=== PATIENT | female | born 1965 | race Caucasian/White ===

== ENCOUNTER 2017-10-08 07:28 | Emergency (ER) | payer MEDICAID, OTHER ==
[~2017-10-08] VITALS: Ht 165.1 cm; Wt 63.0 kg
[~2017-10-08 07:28] MED LIST: IBUP-2321; TRAM50TA; VIC
[2017-10-08] MEDS ORDERED: CABE0.5T2 PO (07:35)
[2017-10-08] MEDS ORDERED: TRAMADOL 50MG TABLET PO ONE (08:45)
[2017-10-08 09:28] VITALS: BP 119/88
== END 2017-10-08 09:58 | disposition home or self-care (01) ==
LOC: ER 07:28
DX: G89.29 Other chronic pain (principal); M54.5 Low back pain; Z88.0 Allergy status to penicillin; Z90.5 Acquired absence of kidney; Z98.890 Other specified postprocedural states
CPT/HCPCS: 99282

== ENCOUNTER 2018-11-28 07:08 | Day surgery (SDC) | payer OTHER ==
[~2018-11-28] VITALS: Ht 162.6 cm; Wt 63.5 kg
[~2018-11-28 07:08] MED LIST changes: +CABE0.5T2 PO
[2018-11-28] MEDS ORDERED: METO-385 PO (08:20)
[2018-11-28] MEDS ORDERED: GABA-529 PO (08:20)
[2018-11-28] MEDS ORDERED: HYDR-4001 PO (08:20)
[2018-11-28] MEDS ORDERED: ESTR0.6264 PO (08:20)
[2018-11-28] MEDS ORDERED: ASPI-1159 PO (08:20)
[2018-11-28] MEDS ORDERED: RANO500T3 PO (08:20)
[2018-11-28] MEDS ORDERED: ESCI5TAB10 PO (08:20)
[2018-11-28] MEDS ORDERED: LIDOCAINE HCL 1% 20ML VIAL (Pyxis) INJ ONE (08:43)
[2018-11-28] MEDS ORDERED: IODIXANOL 320MG/ML 100 ML BOTTLE IV ONE (08:43)
[2018-11-28] MEDS ORDERED: FENTANYL CITRATE/PF 50MCG/ML 2ML VIAL ONE (08:51)
[2018-11-28] MEDS ORDERED: MIDAZOLAM HCL 2 MG/2 ML VIAL ONE (08:51)
[2018-11-28] MEDS ORDERED: ACETAMINOPHEN 325MG TABLET PO PRN (10:00)
[2018-11-28] MEDS ORDERED: ONDANSETRON HCL 4MG/2ML INJ IV PRN (10:00)
[2018-11-28] MEDS ORDERED: ATROPINE SULFATE 1MG/10ML SYR IV PRN (10:00)
[2018-11-28] MEDS ORDERED: HEPARIN SODIUM 1,000 UNIT/1ML VIAL IV ONE (13:42)
[2018-11-28] MEDS ORDERED: NITROGLYCERIN 50MCG/ML 10ML VIAL (CATH LAB) IV ONE (14:58)
[2018-11-28] MEDS ORDERED: NICARDIPINE 100MCG/ML 10ML VIAL (CATH LAB) IV ONE (14:58)
== END 2018-11-28 13:06 | disposition home or self-care (01) ==
LOC: CCL 07:08
PROVIDERS: ATTEND Specialist
DX: I20.9 Angina pectoris, unspecified (principal)
CPT/HCPCS: 93458; 99152; J1644; J2250; J3010; J3490; Q9967; C1769; C1893; G0500